=== PATIENT | female | born 1985 | race American Indian/Alaskan Native ===

== ENCOUNTER 2018-06-22 07:46 | Outpatient (CLI) | payer MEDICAID | END 2018-06-22 07:47 | disposition home or self-care (01) | LOC: PAT 07:46 ==

== ENCOUNTER 2018-06-29 07:53 | Day surgery (SDC) | payer MEDICAID ==
[2018-06-29 08:32] VITALS: BMI 36.2
[2018-06-29] MEDS ORDERED: Liquid Adhesive TOP ONE (10:04)
[2018-06-29] MEDS ORDERED: Lidocaine 1% Inj (20ml) ONE (10:05)
[2018-06-29] MEDS ORDERED: Bupivacaine 0.5% 50 ML IJ ONE (10:05)
[2018-06-29] MEDS ORDERED: Propofol 10 mg/ml Inj (20 ML) ONE ×2 (10:34→11:23)
[2018-06-29] MEDS ORDERED: Midazolam 2 MG/2 ML VIAL ONE ×2 (10:34→10:51)
[2018-06-29] MEDS ORDERED: Bupivacaine 0.5% Inj(30mL) IJ ONE (10:40)
[2018-06-29] MEDS ORDERED: ePHEDrine 50 mg/ml Inj ONE (11:21)
[2018-06-29] MEDS ORDERED: Lactated Ringer's 1,000 ML IV SCH (11:30)
--- NOTE | 2018-06-29 11:31 | PCM.SURG1 ---
Surgeon's Initial Post Op Note - Surgeon's Notes Surgeon: Dr. Phipps Spot Machine Operator: Lillian WHITE Type of Anesthesia: IV Sedation, Local Anesthesia Administered By: Dr. Ortiz Pre-Operative Diagnosis: Upper Back mass Operative Findings: See operative report Post-Operative Diagnosis: Same Operation Performed: Excision of upper back mass Specimen/Specimens Removed: Upper back mass Estimated Blood Loss: EBL {In ML}: 5 Blood Products Given: N/A Drains Used: No Drains Post-Op Condition: Good Date of Surgery/Procedure: 06/29/18 Time of Surgery/Procedure: 11:31
[2018-06-29 11:55] VITALS: RESP 18
[2018-06-29 12:16] VITALS: PULSE 69; TEMP 97.1; O2SAT 100
[2018-06-29 13:28] VITALS: BP 124/69
--- NOTE | 2018-07-05 22:08 | OP ---
PROCEDURE DATE: 06/29/2018 SURGEON: Geo Phipps MD PUBLIC INFORMATION DIRECTOR: Matthew Snyder DO, PGY-2. CITY LETTER CARRIER: Bradley Ortiz MD ANESTHESIA: MAC - Marcaine 0.5 - 18 mL. PREOPERATIVE DIAGNOSIS: A 3 cm deep lipoma of the back. POSTOPERATIVE DIAGNOSIS: A 3 cm deep lipoma of the back. PROCEDURES: 1. Excision of a 3 cm lipoma of the back. 2. Intermediate layered closure. OPERATIVE INDICATIONS: The patient is a 32-year-old female with a progressively enlarging and now symptomatically discomforting subcutaneous lesion bulging up in the posterior left periscapular area. The patient's primary physician, Dr. Karly Queen, recommends removal and after the patient has had explanation of the risks, benefits and alternatives with anticipated outcome, she signed the informed consent for the same day surgical procedure. OPERATIVE NOTE: The patient was brought to the operating room from the holding area where the location has been marked. She undergoes time-out procedure and is identified by her wristband, is then placed on the table in a right lateral Avalos position and intravenous sedation and oxygenation monitoring are provided by the anesthesiologist. The posterior back area is now prepped with Hibiclens chlorhexidine preparation and the patient is then aseptically draped. Infiltration was employed over the lesion in the line of the incision (Daniele) and then a field block was performed to allow for deeper infiltration. Incision was made and hemostasis is contained with cautery and subcutaneous dissection is carried on down to the deep lesion below and a fibrous covering capsule was incised and the mass is immediately released, brought up into the incision and fibrous attachments further deeper are now blocked with bupivacaine and then electrocauterized. The specimen is now submitted to Pathology in formalin and the wound was lavaged with saline, aspirated and hemostasis is reconfirmed using electrocoagulating cautery. Layered closure was employed utilizing 3-0 Polysorb suture for the deeper layers and subcuticular closure of 4-0 Biosyn for the skin with several re-enforcing AutoSuture skin stapler. A dry dressing is applied. The patient is awakened, transported to the recovery room in a satisfactory condition. Sponge, instrument, and suture count were verified as correct at the end of the procedure. Estimated blood loss during this procedure was less than 10 mL of blood. This dictation will be electronically signed without being read. The records assistant was present throughout from beginning to end and was extremely essential in the removal of the lesion and in the closure. Geo Phipps MD
== END 2018-06-29 14:00 | disposition home or self-care (01) ==
LOC: SDS 07:53
PROVIDERS: ATTEND Surgery
DX: D17.30 Benign lipomatous neoplasm of skin and subcutaneous tissue of unspecified sites (principal); F12.90 Cannabis use, unspecified, uncomplicated
CPT/HCPCS: 21931; 84703; 88304; J0690; J2250; J2405; J2704; J3010; J7120 ×2